=== PATIENT | female | born 1985 | race Caucasian/White ===

== ENCOUNTER 2017-09-30 10:18 | Emergency (ER) | payer SELFPAY ==
[~2017-09-30] VITALS: Ht 167.6 cm; Wt 77.0 kg
[~2017-09-30 10:18] MED LIST: ALBUTEROL SUL0.083 % IN; BACTRIM DS1 TAB PO; DARVOCET OR; LORTAB 5 OR; MEDDOSEPAK PO; MUPIROCIN2 % EX; NO HOMEMEDS; PROAIR HFA IN; TYLENOL500 MG OR; ZITHROMAX250 MG PO
[2017-09-30] MEDS ORDERED: AMOXICILLIN500 M2 PO (10:32)
[2017-09-30] MEDS ORDERED: TORADOL PO (10:32)
[2017-09-30 10:38] VITALS: BP 135/77
== END 2017-09-30 10:38 | disposition home or self-care (01) | DRG 159 ==
LOC: ED 10:18
DX: K02.9 Dental caries, unspecified (principal); F17.210 Nicotine dependence, cigarettes, uncomplicated